=== PATIENT | female | born 1930 | race African-American/Black ===

== ENCOUNTER 2017-06-26 21:37 | Emergency (ER) | payer OTHER ==
[~2017-06-26] VITALS: Ht 167.6 cm; Wt 77.1 kg
--- NOTE | 2017-06-26 21:46 | NUR ---
ESTRELLITA LAMAR39 FROM [facility] 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 PT AOX3 RR EVEN AND UNLABORED. NO SOB NOTED. NAD NOTED. NO NVD AT THIS TIME. PT GOWNED AND PLACED ON MONITOR WAITING FOR MD MARQUES.
[2017-06-26] MEDS ORDERED: PANTOPRAZOLE 40 MG VIAL IV ONE (22:00)
--- NOTE | 2017-06-26 22:00 | NUR ---
INITIATED CALL TO [facility] AND REQUESTED RECORDS BE FAXED OVER
[2017-06-26] MEDS ORDERED: FURO-144 PO (22:12)
[2017-06-26] MEDS ORDERED: LOSA50TA3 PO (22:12)
[2017-06-26] MEDS ORDERED: LORA0.5T PO (22:12)
[2017-06-26] MEDS ORDERED: MIRT15TA PO (22:12)
[2017-06-26] MEDS ORDERED: POTA10TA15 PO (22:12)
[2017-06-26] MEDS ORDERED: SENN-18 PO (22:12)
[2017-06-26] MEDS ORDERED: ACET-73 PO (22:12)
[2017-06-26] MEDS ORDERED: LOPE2CAP40 PO (22:12)
[2017-06-26] MEDS ORDERED: CLON0.1T PO (22:12)
[2017-06-26] MEDS ORDERED: OLAN5TAB3 PO (22:12)
[2017-06-26] MEDS ORDERED: OLAN2.5T3 PO (22:12)
--- NOTE | 2017-06-26 22:15 | NUR ---
DR. AVALOS AT BEDSIDE FOR EVAL.
--- NOTE | 2017-06-26 22:23 | NUR ---
PER DR. AVALOS TO HOLD IVP PROTONIX
[2017-06-26 22:25] LABS: BASOPHILS % (AUTO) 0.2 % (0.0-2.0); EOSINOPHILS # (AUTO) 0.1 /CMM (0.0-0.7); EOSINOPHILS % (AUTO) 2.8 % (0.0-6.0); HEMATOCRIT 36 % (33-45); LYMPHOCYTES # (AUTO) 1.1 /CMM (0.8-4.8); LYMPHOCYTES % (AUTO) 24.3 % (20.0-44.0); MEAN CORPUSCULAR HEMOGLOBIN 29 PG (26.0-33.0); MEAN CORPUSCULAR HGB CONC 33 g/dl (31.0-36.0); MEAN CORPUSCULAR VOLUME 89 fL (82-100); MONOCYTES # (AUTO) 0.4 /CMM (0.1-1.30); MONOCYTES % (AUTO) 7.7 % (2.0-12.0); PLATELET COUNT (AUTO) 56 /CMM (150-450); RDW COEFFICIENT OF VARIATION 14.5 (11.5-15.0); RED BLOOD CELL COUNT(AUTO) 4.11 MIL/uL (4.0-5.2); WHITE BLOOD COUNT (AUTO) 4.6 K/uL (4.3-11.0)
[2017-06-26 22:31] LABS: CALCIUM, SERUM 8.9 mg/dL (8.5-10.1); CARBON DIOXIDE 26 mmol/L (21-32); CHLORIDE 111 mmol/L (98-107); CREATININE 1.8 mg/dL (0.6-1.3); GLUCOSE 111 mg/dL (74-106); POTASSIUM 3.9 mmol/L (3.5-5.1); SODIUM SERUM 148 mmol/L (136-145); UREA NITROGEN, BLOOD 36 mg/dL (7-18)
[2017-06-26 22:35] LABS: INR 1.17 (0.87-1.13); PROTHROMBIN TIME 12.7 SECS (9.5-12.7)
[2017-06-26 22:41] LABS: TROPONIN I < 0.017 ng/mL (0.00-0.056)
[2017-06-26 23:10] LABS: EOSINOPHILS % (MANUAL) 2 % (0-4); LYMPHOCYTES % (MANUAL) 28 % (16-48); MONOCYTES % (MANUAL) 5 % (0-11.0); NEUTROPHILS % (MANUAL) 65 (42-76)
[2017-06-26] MEDS ORDERED: IV NS 0.9% 1,000 ML BAG IV ONE (23:30)
--- NOTE | 2017-06-26 23:40 | NUR ---
CALLED [facility] TO ARRANGE TRANSPORT BACK TO [facility]. ETA 1 HOUR FOR BLS.
--- NOTE | 2017-06-27 00:33 | NUR ---
REPORT GIVEN TO EMT FROM [facility] 08 FOR CONTINUE OF CARE. PT VSS. PT AWARE SHE IS BEING TRANSPORTED. EMT PROVIDED WITH D/C PAPERS. PT WITH ALL PERSONAL BELONGINGS. PER [facility] TOOK OVER CARE. PT TO BE TRANSFERED BACK TO COURT YARD VIA GURNEY IV removed. Catheter intact and site benign. Pressure and 4x4 applied to site. No bleeding noted.
[2017-06-27 00:42] VITALS: BP 129/52
== END 2017-06-27 00:43 | disposition home or self-care (01) ==
LOC: ER 21:39
DX: N93.8 Other specified abnormal uterine and vaginal bleeding (principal); F03.90 Unspecified dementia, unspecified severity, without behavioral disturbance, psychotic disturbance, mood disturbance, and anxiety; I11.0 Hypertensive heart disease with heart failure; I50.9 Heart failure, unspecified; F41.9 Anxiety disorder, unspecified; Z88.0 Allergy status to penicillin; Z88.6 Allergy status to analgesic agent
CPT/HCPCS: 36415; 80048; 84484; 85025; 85730; 93005; 99285; A4606; Z7610